=== PATIENT | male | born 1935 | race Caucasian/White ===

== ENCOUNTER → 2017-03-15 | Outpatient (CLI) | payer MEDICARE, BC ==
[~2017-03-15] MED LIST: AMLO5TAB
--- NOTE | 2017-03-15 09:44 | DI ---
EXAM: US ABDOMINAL AORTA, NON-DUPLEX COMPARISON: 08/14/2016. 03/01/2015. 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 FINDINGS: Proximal aorta: 2 cm x 2 cm. Mid aorta: 1.9 cm x 1.9 cm. Distal aorta: 3.2 cm x 3.6 cm. Comments: This appears similar to the prior exam. No evidence for aortic leak is identified. IMPRESSION: There is again seen mild dilatation of the distal aorta measuring 3.2 cm AP by 3.6 transverse without evidence for aortic leak identified. This is similar to the prior exam. LOCATION OF DICTATION: [facility] [place]
== END ==
LOC: IMA 06:30
PROVIDERS: ATTEND Family Medicine
DX: I71.4 Abdominal aortic aneurysm, without rupture (principal)